=== PATIENT | female | born 1960 | race Caucasian/White ===

== ENCOUNTER → 2021-07-23 | Day surgery (SDC) | payer BC | END | disposition home or self-care (01) | LOC: FRADUS-SUR 11:18 | PROVIDERS: ATTEND Obstetrics & Gynecology | PROC: 0HBT3ZX Excision of Right Breast, Percutaneous Approach, Diagnostic (ICD-10-PCS; principal; 2021-07-23) | DX: N63.11 Unspecified lump in the right breast, upper outer quadrant (principal); N64.89 Other specified disorders of breast | CPT/HCPCS: 19085; 77065-TC; A4648; A9579; C1887 ==